=== PATIENT | male | born 1990 | race Caucasian/White ===

== ENCOUNTER 2017-08-09 19:11 | Emergency (ER) | payer BC ==
[~2017-08-09] VITALS: Ht 182.9 cm; Wt 70.2 kg
[~2017-08-09 19:11] MED LIST: COMBIVIR1 TABLET PO; VIBRAMYCIN100 MG PO
[2017-08-09 19:39] VITALS: BP 142/78
[2017-08-09 20:04] LABS: HEMATOCRIT 40.6 % (38.0-50.0); HEMOGLOBIN 14.1 G/DL (12.5-16.6); MCH 31.4 PG (29.0-34.0); MCHC 34.7 G/DL (30.0-36.0); MCV 90.4 FL (86-99); PLATELET COUNT 258 K/uL (156-360); RBC DIS.WIDTH-CV 12.1 % (11.8-14.6); RBC DIS.WIDTH-SD 39.9 % (39-53); RED BLOOD COUNT 4.49 M/uL (4.00-5.50); WHITE BLOOD COUNT 8.9 K/uL (4.1-10.2)
[2017-08-09 20:07] LABS: APPEARANCE CLEAR ((CLEAR)); BILIRUBIN NEGATIVE; BLOOD NEGATIVE; COLOR YELLOW ((YELLOW)); GLUCOSE (STRIP) NEGATIVE; KETONES NEGATIVE; LEUKOCYTES NEGATIVE; NITRITE NEGATIVE; PROTEIN (STRIP) NEGATIVE; SPECIFIC GRAVITY 1.008 (1.000-1.030); UCUL ADDED? NO; UROBILINOGEN 0.2 MG/DL (0.2-1.0)
[2017-08-09 20:20] LABS: ALBUMIN 4.6 g/dL (3.2-4.8); CHLORIDE 105 mEq/L (99-109); POTASSIUM 3.8 mEq/L (3.7-5.4); SODIUM 139 mEq/L (136-147)
[2017-08-09 20:22] LABS: GLUCOSE 89 mg/dL (70-99)
[2017-08-09 20:23] LABS: TOTAL PROTEIN 7.2 g/dL (6.4-8.3)
[2017-08-09 20:24] LABS: TOTAL BILIRUBIN 0.3 mg/dL (0.0-1.0)
[2017-08-09 20:26] LABS: ALKALINE PHOSPHATASE 37 IU/L (3-129); CREATININE 0.9 mg/dL (0.6-1.3); GFR ESTIMATE (CALCULATED) > 59 mL/min/ (58.99-99999)
[2017-08-09 20:27] LABS: UREA NITROGEN (BUN) 9 mg/dL (9-23)
[2017-08-09 20:28] LABS: AST (GOT) 14 IU/L (2-34)
[2017-08-09 20:29] LABS: ALT (GPT) 12 IU/L (3-49); LIPASE 33 U/L (1.0-51.0)
[2017-08-09] MEDS ORDERED: CIPRO500 MG PO (23:55)
[2017-08-09] MEDS ORDERED: BENTYL10 MG PO (23:55)
== END 2017-08-10 01:37 | disposition home or self-care (01) ==
LOC: EME 19:11
DX: R19.7 Diarrhea, unspecified (principal); R10.10 Upper abdominal pain, unspecified; R10.30 Lower abdominal pain, unspecified; F17.200 Nicotine dependence, unspecified, uncomplicated; Z88.8 Allergy status to other drugs, medicaments and biological substances
CPT/HCPCS: 74177; 80053; 81003; 83690; 85027; 87493; 87506; 99281; 99284